=== PATIENT | female | born 1995 | race Caucasian/White ===

== ENCOUNTER 2018-01-23 06:53 | Day surgery (SDC) | payer BC ==
[~2018-01-23 06:53] MED LIST: CEFAZOLIN 1 GM/50 ML (PMX) 50 ML IVPB; SOD CHLORIDE 0.9% 1,000 ML IV
[2018-01-23] MEDS ORDERED: PROPOFOL 20 ML ×2 (07:20→07:21)
[2018-01-23] MEDS ORDERED: LIDOCAINE 1% (MDV) 20 ML INJ (07:21)
[2018-01-23] MEDS ORDERED: MIDAZOLAM 1 MG/ML 2 ML INJ (07:21)
[2018-01-23] MEDS ORDERED: FENTAnyl 50 MCG/ML VIAL (07:22)
[2018-01-23] MEDS ORDERED: BUPIVACAINE 0.25% (MPF) 30 ML INJ (08:10)
[2018-01-23] MEDS ORDERED: BUPIVACAINE 0.5% (SDV) 30 ML INJ (08:10)
[2018-01-23] MEDS ORDERED: LIDOCAINE 2% (MDV) 20 ML INJ (08:10)
[2018-01-23] MEDS ORDERED: ONDANSETRON 4 MG INJ (08:17)
[2018-01-23] MEDS ORDERED: DEXAMETHASONE 4 MG/ML 1 ML INJ (08:17)
[2018-01-23] MEDS ORDERED: SUCCINYLCHOLINE CHLORIDE 100 MG/5 ML SYG IV (08:17)
[2018-01-23] MEDS ORDERED: HYDROmorphONE (0.2 MG/ML) 10ML SYG IV (08:30)
[2018-01-23] MEDS ORDERED: ONDANSETRON 4 MG INJ IV (08:30)
[2018-01-23] MEDS ORDERED: MEPERIDINE 25 MG INJ IV (08:30)
[2018-01-23] MEDS ORDERED: CEFAZOLIN 1 GM INJ (08:40)
[2018-01-23] MEDS: BUPIVACAINE 0.25% (MPF) 30 ML INJ INJ (08:42)
[2018-01-23] MEDS ORDERED: PHENYLephrine 10 MG INJ (08:45)
[2018-01-23] MEDS ORDERED: EPHEDrine SULFATE 50 MG/5 ML SYG (08:45)
[2018-01-23] MEDS: IBUPROFEN 800 MG TAB PO (09:20)
== END 2018-01-23 09:50 | disposition home or self-care (01) ==
LOC: SDS 06:53
DX: K13.0 Diseases of lips (principal)
CPT/HCPCS: 11442; 88307